=== PATIENT | male | born 1945 | race Caucasian/White ===

== ENCOUNTER 2019-07-22 07:47 | Outpatient (CLI) | payer MEDICARE, BC ==
--- NOTE | 2019-07-22 12:35 | MRI Report ---
Reason: L KNEE PAIN Procedure Date: 07/22/2019 Accession Number: [id number] / [id number] Procedure: MRI - Knee LT W/O CPT Code: FULL RESULT: EXAM: LEFT KNEE MRI WITHOUT CONTRAST EXAM DATE: 07/22/2019 09:12 AM. CLINICAL HISTORY: Left knee pain. COMPARISON: None. TECHNIQUE: Multiplanar, multisequence T1-weighted and fluid-sensitive sequences of the knee without contrast. Other: None. FINDINGS: Bones: Subjacent marrow edema on both sides of the medial compartment. There are tiny subchondral cysts seen adjacent to the medial femoral epicondyle. Small cystic structures also seen adjacent to the lateral tibial plateau and lateral femoral condyle. 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 There also is an undermining flap at the medial femoral condyle. Series 601 image 19. Some cartilaginous loss with a second articular cartilaginous flap at the medial aspect of the lateral tibial plateau. Broad areas of grade IV chondromalacia also seen at the lateral femoral condyle. Series 601 image 22. Medial Meniscus: Mid body and posterior horn medial meniscus shows superior surface tearing. There is some truncation of the posterior horn, this may be postoperative. Medial meniscus is partially subluxed out of the joint. No displaced fragment. Lateral Meniscus: Lateral meniscus shows some internal signal, no tears are noted. Cruciate Ligaments: The anterior and posterior cruciate ligaments are intact. Collateral Ligaments: MCL is bowed medially by the partially subluxed medial meniscus out of the joint, LCL is normal. Tendons: The quadriceps, patellar, semimembranosus, and popliteus tendons are unremarkable. Musculature: No edema or fatty atrophy. Other: Large joint effusion. Popliteal cyst is large also, significant debris seen in the joint as well as the popliteal cyst. The medial and lateral retinacula are intact. Prominent plica. Subcutaneous edema and swelling are seen anteriorly. Some edema also seen in Hoffa's fat .. IMPRESSION: 1. Some broad areas of grade IV chondromalacia seen in both sides of the medial compartment, undermining flap at the medial femoral condyle and also at the lateral femoral condyle. Subjacent marrow edema both sides of the medial compartment. Subchondral cystic changes seen at the medial femoral condyle as well as at the lateral tibial plateau. 2. Large joint effusion. Popliteal cyst also large, significant debris seen in the joint and the popliteal cyst. 3. MCL is bowed out of the joint with a partially subluxed medial meniscus. There is some superior surface tearing as well as truncation of the posterior arm, which may be postoperative. No displaced fragment. 4. Lateral meniscus shows some signal but no tears. RADIA
== END 2019-07-22 07:48 | disposition home or self-care (01) ==
LOC: DI 07:47
PROVIDERS: ATTEND Internal Medicine
DX: M94.262 Chondromalacia, left knee (principal); M25.462 Effusion, left knee; S83.242A Other tear of medial meniscus, current injury, left knee, initial encounter

== ENCOUNTER 2022-08-01 08:00 | Outpatient (CLI) | payer MEDICARE, BC ==
[2022-08-01 15:39] LABS: BASOPHILS % (AUTO) 0.7 %; EOSINOPHILS # (AUTO) 0.2 10^3/uL (0.0-0.7); EOSINOPHILS % (AUTO) 3.3 %; HCT - HEMATOCRIT 49.1 % (42.0-52.0); HGB - HEMOGLOBIN 16.5 g/dL (14.0-18.0); LYMPHOCYTES # (AUTO) 1.7 10^3/uL (1.5-3.5); LYMPHOCYTES % (AUTO) 31.3 %; MEAN CORPUSCULAR HGB CONC 33.6 g/dL (32.0-36.0); MEAN CORPUSCULAR VOLUME 95.2 fL (80.0-94.0); MEAN PLATELET VOLUME 10.1 fL (7.4-11.4); MONOCYTES # (AUTO) 0.6 10^3/uL (0.0-1.0); MONOCYTES % (AUTO) 11.6 %; NEUTROPHILS # (AUTO) 2.9 10^3/uL (1.5-6.6); NEUTROPHILS % (AUTO) 52.9 %; PLT - PLATELET COUNT 205 10^3/uL (130-450); RED BLOOD COUNT 5.16 10^6/uL (4.70-6.10); RED CELL DISTRIBUTION WIDTH 13.1 % (12.0-15.0); WHITE BLOOD COUNT 5.5 x10^3/uL (4.8-10.8)
[2022-08-01 16:06] LABS: PSA TOTAL 7.15 ng/mL (0.000-2.000)
[2022-08-01 16:07] LABS: ALBUMIN 4.5 g/dL (3.2-5.5); ALKALINE PHOSPHATASE 50 IU/L (42-121); ALT ALANINE AMINOTRANSFERASE 21 IU/L (10-60); AST ASPARTATE AMINOTRANSFERASE 20 IU/L (10-42); BILIRUBIN,TOTAL 0.7 mg/dL (0.2-1.0); BUN - BLOOD UREA NITROGEN 17 mg/dL (6-20); CALCIUM 9.1 mg/dL (8.5-10.3); CARBON DIOXIDE - CO2 27 mmol/L (21-32); CHLORIDE 103 mmol/L (101-111); CHOL/HDL RATIO 3.6 (<5.0); CHOLESTEROL 211 mg/dL; CK- CREATINE KINASE 84 IU/L (22-269); GFR - MDRD 72 (>89); GLUCOSE 100 mg/dL (70-100); HDL CHOLESTEROL 58 mg/dL; LDL CHOLESTEROL,CALCULATED 140 mg/dL; LDL/HDL RATIO 2.4 (<3.6); POTASSIUM 4.4 mmol/L (3.5-5.0); SODIUM 140 mmol/L (135-145); TOTAL PROTEIN 6.8 g/dL (6.7-8.2); TRIGLYCERIDES 64 mg/dL; VLDL CHOLESTEROL 13 mg/dL
[2022-08-01 16:56] LABS: PSA FREE 2.047 ng/mL (0.16-2.81)
[2022-08-01 20:05] LABS: ESTIMATED AVERAGE GLUCOSE 111 mg/dL (70-100); HEMOGLOBIN A1c% 5.5 % (4.27-6.07)
== END 2022-08-01 23:59 | disposition home or self-care (01) ==
LOC: LAB.R 08:00
PROVIDERS: ATTEND Internal Medicine
DX: Z00.00 Encounter for general adult medical examination without abnormal findings (principal); C44.91 Basal cell carcinoma of skin, unspecified; N40.0 Benign prostatic hyperplasia without lower urinary tract symptoms; H26.9 Unspecified cataract; I10 Essential (primary) hypertension; R73.9 Hyperglycemia, unspecified; R97.20 Elevated prostate specific antigen [PSA]; M25.569 Pain in unspecified knee; G47.30 Sleep apnea, unspecified
CPT/HCPCS: 80053; 80061; 82550; 83036; 83721; 84153; 84154; 84443; 85025

== ENCOUNTER 2023-02-20 18:14 | Outpatient (CLI) | payer MEDICARE, OTHER | END 2023-02-20 18:15 | disposition critical access hospital (66) | LOC: EMS 18:14 | DX: R11.2 Nausea with vomiting, unspecified (principal); R10.84 Generalized abdominal pain | CPT/HCPCS: A0425; A0427 ==

== ENCOUNTER 2023-02-20 18:45 | Emergency (ER) | payer MEDICARE, OTHER ==
[2023-02-20] MEDS ORDERED: ONDANSETRON 4 MG/2 ML VIAL IVP STA (19:05)
[2023-02-20] MEDS ORDERED: HYDROmorphone 1 MG/ML CARPUJECT IVP STA (19:05)
[2023-02-20 19:16] LABS: BASOPHILS % (AUTO) 0.3 %; HCT - HEMATOCRIT 53.3 % (42.0-52.0); LYMPHOCYTES # (AUTO) 0.5 10^3/uL (1.5-3.5); LYMPHOCYTES % (AUTO) 3.4 %; MEAN CORPUSCULAR HEMOGLOBIN 30.8 pg (27.0-31.0); MEAN CORPUSCULAR HGB CONC 33.8 g/dL (32.0-36.0); MEAN CORPUSCULAR VOLUME 91.1 fL (80.0-94.0); MEAN PLATELET VOLUME 9.6 fL (7.4-11.4); MONOCYTES # (AUTO) 1.1 10^3/uL (0.0-1.0); MONOCYTES % (AUTO) 6.8 %; NEUTROPHILS # (AUTO) 14.2 10^3/uL (1.5-6.6); NEUTROPHILS % (AUTO) 89.2 %; PLT - PLATELET COUNT 227 10^3/uL (130-450); RED BLOOD COUNT 5.85 10^6/uL (4.70-6.10); RED CELL DISTRIBUTION WIDTH 12.9 % (12.0-15.0); WHITE BLOOD COUNT 15.9 x10^3/uL (4.8-10.8)
[2023-02-20] MEDS ORDERED: SODIUM CHLORIDE 0.9% 1,000 ML IV STA ×2 (19:19)
--- NOTE | 2023-02-20 19:22 | ED Physician Documentation ---
History of Present Illness - Stated complaint Stated Complaint: ABD PX - Chief complaint Chief Complaint: Abd Pain - History obtained from History obtained from: Patient, Family, EMS - History of Present Illness Timing: Yesterday Pain level max: 10 Pain level now: 10 - Additonal information Additional information: Patient is a 77-year-old male who states that around 730 last night started having abdominal cramping, nausea, developed vomiting around 2 AM. Has been vomiting since that time. He took MiraLAX without relief. He was given fentanyl with EMS on route. He states he is having severe abdominal pain and cramping. He states the pain is diffuse. He states that he did notice a small amount of pink tinge to the emesis this morning. No gerri blood. Denies any diarrhea. No fevers or chills. Has never had any abdominal surgeries., The pain is nonradiating, comes in waves. Review of Systems Constitutional: denies: Fever, Chills Ears: denies: Ear pain Nose: denies: Rhinorrhea / runny nose, Congestion Cardiac: denies: Palpitations Respiratory: denies: Dyspnea, Cough GI: reports: Nausea, Vomiting. denies: Diarrhea, Hematemesis, Bloody / black stool : denies: Dysuria, Frequency, Hesitancy Skin: denies: Rash Musculoskeletal: denies: Neck pain, Back pain Neurologic: denies: Headache PD PAST MEDICAL HISTORY - Past Medical History Past Medical History: Yes : Other (Erectile dysfunction, takes Viagra) - Present Medications Home Medications: Ambulatory Orders Medication Instructions Recorded Confirmed Ondansetron Odt [Zofran] 4 mg TL Q6H PRN #14 tablet 02/20/23 Oxycodone HCl/Acetaminophen 1 - 2 each PO Q6H PRN #14 tablet 02/20/23 [Percocet 5-325 mg Tablet] MDD 6 tabs - Allergies Allergies/Adverse Reactions: Allergies Allergy/AdvReac Type Severity Reaction Status Date / Time Penicillins AdvReac Unknown Verified 02/20/23 19:12 - Living Situation Living Situation: reports: With family Living Arrangement: reports: At home - Social History Does the pt drink ETOH?: Yes ETOH Use: Other (2 drinks per day) Does the pt have substance abuse?: No - Family History Family history: reports: Non contributory PD ED PE NORMAL - Vitals Vital signs reviewed: Yes - General General: Alert and oriented X 3, No acute distress - HEENT HEENT: PERRL, Moist mucous membranes - Neck Neck: Supple, no meningeal sign - Cardiac Cardiac: RRR, Strong equal pulses - Respiratory Respiratory: No respiratory distress, Clear bilaterally - Abdomen Abdomen: Normal bowel sounds, Soft, Non distended, Other (Diffusely tender to palpation. No peritoneal signs.) - Back Back: No CVA TTP, No spinal TTP - Derm Derm: Warm and dry - Extremities Extremities: No edema - Neuro Neuro: Alert and oriented X 3 - Psych Psych: Normal mood, Normal affect Results - Vitals Vitals: Vital Signs - 24 hr 02/20/23 02/20/23 02/20/23 18:52 19:00 21:00 Temperature 36.7 C Heart Rate 90 85 95 Respiratory 13 18 Rate Blood Pressure 191/99 H 191/99 H 144/86 H O2 Saturation 100 97 95 02/20/23 22:22 Temperature 36.7 C Heart Rate 89 Respiratory 13 Rate Blood Pressure 135/81 H O2 Saturation 97 Oxygen O2 Source Room air - Labs Labs: Laboratory Tests 02/20/23 02/20/23 02/20/23 19:12 19:12 21:29 WBC 15.9 H RBC 5.85 Hgb 18.0 Hct 53.3 H MCV 91.1 MCH 30.8 MCHC 33.8 RDW 12.9 Plt Count 227 MPV 9.6 Neut # (Auto) 14.2 H Lymph # (Auto) 0.5 L Stevens # (Auto) 1.1 H Eos # (Auto) 0.0 Baso # (Auto) 0.0 Absolute Nucleated RBC 0.00 Nucleated RBC % 0.0 Sodium 136 Potassium 3.7 Chloride 101 Carbon Dioxide 21 Anion Gap 14.0 H BUN 21 H Creatinine 1.3 H Estimated GFR (MDRD) 53 L Glucose 216 H Calcium 8.9 Total Bilirubin 0.9 AST 24 ALT 19 Alkaline Phosphatase 57 Total Protein 6.7 Albumin 4.1 Globulin 2.6 Albumin/Globulin Ratio 1.6 Lipase 27 Urine Color YELLOW Urine Clarity CLEAR Urine pH 6.0 Ur Specific Martin 1.015 Urine Protein TRACE Urine Glucose (UA) NEGATIVE Urine Ketones 15 H Urine Occult Blood NEGATIVE Urine Nitrite NEGATIVE Urine Bilirubin NEGATIVE Urine Urobilinogen 0.2 (NORMAL) Ur Leukocyte Esterase NEGATIVE Ur Microscopic Review NOT INDICATED Urine Culture Comments NOT INDICATED - Rads (name of study) CT abdomen pelvis Relevant Findings:: Final report received, See rad report PD Medical Decision Making - ED course Complexity details: reviewed results, re-evaluated patient, considered differential, d/w patient, d/w family ED course: Patient was given IV fluids and IV Dilaudid. Pain resolved. CT scan shows an enteritis, possible ileus. Also has an enlarged prostate, he states he has his prostate followed very closely by his PCP and is aware of the enlargement, abnormal areas on CT. He states he also has PSA performed regularly. Patient is tolerating p.o. without difficulty. Recommend liquid diet for the next 24 hours. He does not want to be admitted to the hospital. Will prescribe pain medication and nausea medication for home. Patient counseled regarding signs and symptoms for which I believe and urgent re-evaluation would be necessary. Patient with good understanding of and agreement to plan and is comfortable going home at this time This document was made in part using voice recognition software. While efforts are made to proofread this document, sound alike and grammatical errors may occur. CBC shows a mild leukocytosis, 16,000. Hemoglobin hematocrit appear hemoconcentrated. Chemistry reveals an elevated BUN at 21 and elevated creatinine at 1.3. Glucose mildly elevated at 216. Unknown what his normal baseline is. Departure - Departure Disposition: 01 Home, Self Care Clinical Impression: Viral enteritis Condition: Good Instructions: ED Gastroenteritis Viral Follow-Up: Flory Sanabria MD [Primary Care Provider] - Within 1 week Prescriptions: Oxycodone HCl/Acetaminophen [Percocet 5-325 mg Tablet] 1 - 2 each PO Q6H PRN #14 tablet MDD 6 tabs PRN Reason: pain Ondansetron Odt [Zofran] 4 mg TL Q6H PRN #14 tablet PRN Reason: Nausea / Vomiting Comments: Your prescriptions were sent to [facility] in [place]. I would recommend sticking to a liquid diet over the next 24 hours, limit any oral intake tonight. Avoid milk, caffeine, etc. tomorrow. Please return if you worsen. Your CT scan findings are below, as we discussed, please make sure that your doctor is following your prostate closely. I am prescribing a short course of narcotic pain medication for you. These are potentially dangerous and addictive medications that should be used carefully. These medications may constipate you. Take an [id number]-gregbcv stool softener (docusate) twice daily with plenty of water while taking these medications. If you go 24 hours without a bowel movement, take [id number] miralax, per package instructions. Do not drink or drive while taking these medications. If you received narcotic or sedating medications while in the emergency department, do not drive for 24 hours. Store this medication in a safe, secure place and out of reach of children. It is a violation of federal law to give or sell this medication to another person or to use in a manner other than prescribed. The ED will not refill narcotic prescriptions, including prescriptions lost or stolen. To dispose of unwanted medications: 1. [facility] [address] in [place] has a medication drop box. They accept prescription medications (in pill form) Sunday through Sunday 9:00 a.m. to 5:00 p.m. 2. The [facility] accepts prescription medications (in pill form only) for disposal year round. Call for more information. 3. Contact the [facility] for the next [facility] sponsored prescription drug collection event. , [phone], or [phone]; FINDINGS: Image quality: There is mild dependent atelectasis. Lung bases: Unremarkable. Heart: Heart is normal in size. There is a small hiatal hernia. Mild concentric wall thickening demonstrated within the distal esophagus. ABDOMEN: Liver: No mass lesion. Gallbladder: Within normal limits without calcified gallstones. Biliary ducts: No biliary ductal dilatation. Pancreas: Unremarkable. Spleen: Normal in size. Adrenal Glands: No adrenal nodules. Kidneys and Ureters: No hydronephrosis. Stomach and Bowel: There are a few short segments of small bowel wall thickening and enhancement involving the jejunum in the left mid abdomen with associated short segments of mild upstream bowel distention. A few associated air-fluid levels are demonstrated. There is a single transition point. The findings likely represent an infectious or inflammatory enteritis with mild upstream dilatation due to associated strictures or ileus. Distal small bowel is nondistended. Appendix is normal. There is colonic diverticulosis without acute diverticulitis. Peritoneum: There is a small amount of intraperineal free fluid in the abdomen and pelvis with mild edema in the mesentery within the left abdomen. No free air. Ventral Wall: No hernia. Abdominal Nodes: No retroperitoneal or mesenteric adenopathy by size criteria. Vessels: Aorta and inferior vena cava are normal in size. PELVIS: Pelvic Organs: There is marked heterogeneous enlargement of the prostate. Focal nodular enhancement is demonstrated within the right peripheral zone measuring approximately 0.8 cm on series 3 image 84. Bladder: Unremarkable. Pelvic Nodes: No enlarged lymph nodes. Miscellaneous: No inguinal hernias. Bones: Visualized osseous structures demonstrate no suspicious lesions. IMPRESSION: 1. Multiple short segments of small bowel wall thickening and enhancement involving the jejunum in the left abdomen likely represent an infectious or inflammatory enteritis. Associated mild upstream dilatation of adjacent small bowel loops are likely secondary to strictures or an ileus. 2. Small amount of intraperitoneal free fluid and edema within the mesentery lik moy represent reactive changes. 3. Mild segmental wall thickening in the visualized distal esophagus suggestive of an esophagitis. 4. Marked heterogeneous enlargement of the prostate with focal nodular enhancement in the right peripheral zone. The findings are nonspecific but suspicious for focal prostatitis or neoplasm. Consider urologic referral. Discharge Date/Time: 02/20/23 22:25
[2023-02-20] MEDS ORDERED: iohexoL-300 100 ML VIAL ONE (19:27)
[2023-02-20 19:31] LABS: ALBUMIN 4.1 g/dL (3.2-5.5); ALBUMIN/GLOBULIN RATIO 1.6 (1.0-2.2); BILIRUBIN,TOTAL 0.9 mg/dL (0.2-1.0); CALCIUM 8.9 mg/dL (8.5-10.3); CREATININE 1.3 mg/dL (0.6-1.2); POTASSIUM 3.7 mmol/L (3.5-5.0); TOTAL PROTEIN 6.7 g/dL (6.7-8.2)
[2023-02-20] MEDS ORDERED: iohexoL-300 100 ML VIAL IVP ONE (20:46)
[2023-02-20 21:36] LABS: BILIRUBIN,URINE NEGATIVE (NEGATIVE); GLUCOSE, URINE (UA) NEGATIVE (NEGATIVE); KETONES,URINE (UA) 15 mg/dL (NEGATIVE); LEUKOCYTE ESTERASE, URINE NEGATIVE (NEGATIVE); NITRITE,URINE NEGATIVE (NEGATIVE); OCCULT BLOOD,URINE NEGATIVE (NEGATIVE); PROTEIN,URINE TRACE mg/dL (NEGATIVE); UROBILINOGEN,URINE 0.2 (NORMAL) E.U./dL (NORMAL)
[2023-02-20 21:38] LABS: CLARITY,URINE CLEAR (CLEAR)
--- NOTE | 2023-02-20 21:57 | CT Report ---
PROCEDURE: ABDOMEN/PELVIS W INDICATIONS: diffuse abd pain, vomiting x 24 hours CONTRAST: Omni 300 100ml TECHNIQUE: After the administration of intravenous contrast, 5 mm thick sections acquired from the diaphragms to the symphysis. 5 mm thick coronal and sagittal reformats were acquired. For radiation dose reducti on, the following was used: automated exposure control, adjustment of mA and/or kV according to ya ent size. COMPARISON: None. FINDINGS: Image quality: There is mild dependent atelectasis. Lung bases: Unremarkable. Heart: Heart is normal in size. There is a small hiatal hernia. Mild concentric wall thickening demo nstrated within the distal esophagus. ABDOMEN: Liver: No mass lesion. Gallbladder: Within normal limits without calcified gallstones. Biliary ducts: No biliary ductal dilatation. Pancreas: Unremarkable. Spleen: Normal in size. Adrenal Glands: No adrenal nodules. Kidneys and Ureters: No hydronephrosis. Stomach and Bowel:There are a few short segments of small bowel wall thickening and enhancement invo lving the jejunum in the left mid abdomen with associated short segments of mild upstream bowel diste ntion. A few associated air-fluid levels are demonstrated. There is a single transition point. The fi ndings likely represent an infectious or inflammatory enteritis with mild upstream dilatation due to associated strictures or ileus. Distal small bowel is nondistended. Appendix is normal. There is colo estefany diverticulosis without acute diverticulitis. Peritoneum:There is a small amount of intraperineal free fluid in the abdomen and pelvis with mild e eleno in the mesentery within the left abdomen. No free air. Ventral Wall: No hernia. Abdominal Nodes: No retroperitoneal or mesenteric adenopathy by size criteria. Vessels: Aorta and inferior vena cava are normal in size. PELVIS: Pelvic Organs:There is marked heterogeneous enlargement of the prostate. Focal nodular enhancement i s demonstrated within the right peripheral zone measuring approximately 0.8 cm on series 3 image 84. Bladder: Unremarkable. Pelvic Nodes: No enlarged lymph nodes. Miscellaneous: No inguinal hernias. Bones: Visualized osseous structures demonstrate no suspicious lesions. IMPRESSION: 1. Multiple short segments of small bowel wall thickening and enhancement involving the jejunum in th e left abdomen likely represent an infectious or inflammatory enteritis. Associated mild upstream dil atation of adjacent small bowel loops are likely secondary to strictures or an ileus. 2. Small amount of intraperitoneal free fluid and edema within the mesentery likely represent reactiv e changes. 3. Mild segmental wall thickening in the visualized distal esophagus suggestive of an esophagitis. 4. Marked heterogeneous enlargement of the prostate with focal nodular enhancement in the right perip heral zone. The findings are nonspecific but suspicious for focal prostatitis or neoplasm. Consider u rologic referral. Reviewed by: Lowell Ariza MD on 02/20/2023 9:55 PM PDT Approved by: Lowell Ariza MD on 02/20/2023 9:55 PM PDT Station ID: [id number]
[2023-02-20] MEDS ORDERED: ONDANSETRON ODT 4 MG Prepack 2 TL PRN (22:08)
[2023-02-20] MEDS ORDERED: oxyCODONE/ACET 5/325 Prepack 4 PO STA (22:08)
[2023-02-20 22:24] VITALS: BP 135/81
== END 2023-02-20 22:25 | disposition home or self-care (01) ==
LOC: ED 18:45
DX: A08.4 Viral intestinal infection, unspecified (principal)
CPT/HCPCS: 36415; 74177; 80053; 81003; 83690; 85025; 96374; 96375; 99284; J1170; Q9967; 81001; 87086